=== PATIENT | male | born 2000 | race African-American/Black ===

== ENCOUNTER 2025-03-01 14:17 | Emergency (ER) | payer MEDICAID ==
[~2025-03-01] VITALS: Ht 172.7 cm; Wt 86.4 kg
[2025-03-01 14:26] VITALS: TEMP 98.2
[2025-03-01 16:00] VITALS: BP 138/99; PULSE 77; RESP 16; O2SAT 97
[2025-03-01] MEDS ORDERED: BACI28.410 TP (16:33)
[2025-03-01] MEDS ORDERED: IBUP-1554 PO (16:33)
[2025-03-01] MEDS ORDERED: HYDR-4062 PO (16:33)
[2025-03-01] MEDS: IBUPROFEN 600 MG TABLET PO ONE (16:43)
[2025-03-01] MEDS: HYDROCODONE/ACETAMINOPHEN 5-325 MG TABLET PO ONE (16:43)
[2025-03-01] MEDS: BACITRACIN 0.9 GM PACKET OINTMENT TP ONE (16:43)
== END 2025-03-01 17:03 | disposition home or self-care (01) ==
LOC: EMS 14:20
DX: S60.221A Contusion of right hand, initial encounter (principal); Z91.013 Allergy to seafood; Z91.030 Bee allergy status; W22.8XXA Striking against or struck by other objects, initial encounter; Y93.89 Activity, other specified; Y92.89 Other specified places as the place of occurrence of the external cause; Y99.8 Other external cause status
CPT/HCPCS: 99284; 73130-TC; Z7502; Z7610